=== PATIENT | female | born 1935 | race Caucasian/White ===

== ENCOUNTER 2018-06-14 10:21 | Inpatient (IN) ==
--- NOTE | 2018-06-14 10:43 | Pre-Sedation Evaluation ---
Pre-sedation evaluation - Pre-sedation checklist Date of procedure: 06/14/18 Procedure: [facility] [place] Recent Vitals: VS stable per patient H&P (including ROS) documented in medical record: Yes Previous reaction to sedatives/anesthetics: No Dietary Status: NPO after Midnight Airway Assessment: Patient can open mouth completely, TMJ function normal ASA Classification *see protocol: CLASS II-Mild systemic disease Cardiac Registry (Cardio Only) - Functional Capacity Functional Capacity: >=4 METS with symptoms - Clincal Frailty Scale Clinical Frailty Scale: Managing Well
[2018-06-14] MEDS ORDERED: 0.9 % Sodium Chloride 1,000 ML IVC SCH (10:45)
--- NOTE | 2018-06-14 10:49 | History & Physical Report ---
Date of Encounter: 06/14/18 Time of Encounter: 11:00 24 Hour HP Update - Instructions Instructions: If the History and Physical is less than 30 days old and was completed prior to A.M. admission and or procedure and has NOT been updated on calendar day of procedure please complete this update prior to performing procedure. - Update Patient reports changes in Medical Condition: No Changes in examination, assessment, or condition: No Changes in Medication: No Preop tests/diagnostics Reviewed: Yes Surgery Remains Indicated: Yes Consent for Planned Operative Procedure(s) Verified: Yes
[2018-06-14] MEDS ORDERED: ISOVUE-370 200 ML INFUS..BTL IV ONE ×2 (10:50→13:51)
[2018-06-14] MEDS ORDERED: Heparin 1,000 UNITS/500 mL 500 ML ONE ×2 (10:50→17:58)
[2018-06-14] MEDS ORDERED: Nitroglycerin 1,000 MCG/10 ML VIAL IV ONE (10:50)
[2018-06-14] MEDS ORDERED: *HR* Heparin 10,000 UNIT/10 ML VIAL ONE (10:50)
[2018-06-14] MEDS ORDERED: *HR* Midazolam HCl 2 MG/2 ML VIAL ONE ×2 (13:06→13:48)
[2018-06-14] MEDS ORDERED: *HR* FentaNYL (PF) 100 MCG/2 ML VIAL ONE ×2 (13:06→17:50)
[2018-06-14] MEDS ORDERED: Verapamil 5 MG/2 ML VIAL ONE (13:27)
[2018-06-14] MEDS ORDERED: Tirofiban 12.5 MG/250ML 12.5 MG/250 ML BAG ONE (13:45)
--- NOTE | 2018-06-14 13:57 | Cardiology History & Physical ---
Date of Encounter: 06/14/18 Time of Encounter: 13:25 Assessment and Plan (1) Abnormal nuclear stress test Current Visit: Yes Status: Acute A/R/B of [facility] discussed with her including 1% chance of WI//CVA/CABG/GEOVANY/ bleeding. Eliquis held. Will attempt transradial approach if able. Will avoid triple therapy if possible given advanced age and being on anticoagulation for AF. Pt aware and agreeable with proceeding. The assessment and plan as outlined above was discussed with the patient and/or family members who expressed understanding and agreement. All questions were answered. History of Present Illness Chief complaint: abnormal stress test HPI: Ms. Desir is a 83 year old female with abnormal stress test for preoperative evaluation with low functional capacity < 4 METS and newly diagnosed AF on Eliquis.. Her stress test showed abnormalities in multiple coronary distributions. She denies any active symptoms of chest/jaw/arm discomfort but has had palpitations leading to Holter finding afib. Past Med Surg Social Fam HX - Past Medical History Medical history: COPD, fibromyalgia, GERD, hypertension Additional medical history: KIDNEY DISEASE. PRURIGO NODULARIS Psychiatric history: depression - Past Surgical History Surgical History: cholecystectomy, hysterectomy, knee replacement - Social History Smoking Status: Never smoker Smokeless Tobacco Status: No Alcohol use: none Drug use: none Medications and Allergies Acetaminophen [Tylenol] 500 mg PO Q6HR PRN #20 tablet 02/19/18 [Rx] Amlodipine Besylate [Amlodipine Besylate] 10 mg PO DAILY 02/19/18 [History] Diltiazem [Cardizem] 120 mg PO DAILY 02/19/18 [History] Apixaban [Eliquis] 5 mg PO BID 06/14/18 [History] Aspirin [Lo-Dose Aspirin EC] 81 mg PO DAILY 06/14/18 [History] Benazepril HCl [Lotensin] 40 mg PO DAILY 06/14/18 [History] Calcium/Magnesium [Calcium with Magnesium Tab] 2 tab PO DAILY 06/14/18 [History] Cholecalciferol (D-3) [Vitamin D] 1,000 unit PO DAILY 06/14/18 [History] Diltiazem HCl [Diltiazem ER] 120 mg PO DAILY 06/14/18 [History] FLUoxetine HCl [Sarafem] 20 mg PO DAILY 06/14/18 [History] Gabapentin [Neurontin] 300 mg PO BID 06/14/18 [History] Glimepiride [Amaryl] 4 mg PO DAILY 06/14/18 [History] Tramadol HCl [Ultram] 50 mg PO QID PRN 06/14/18 [History] hydroCHLOROthiazide [Hydrochlorothiazide] 25 mg PO DAILY 06/14/18 [History] 3 Allergy/AdvReac Type Severity Reaction Status Date / Time ciprofloxacin [From Cipro] Allergy Severe Swelling Verified 06/09/18 11:22 of Lip/Tongue/Throat Sulfa (Sulfonamide Allergy Intermediate Palpitation Verified 06/09/18 11:22 Antibiotics) s Oxycodone Allergy Hives Verified 02/19/18 14:10 sulfamethoxazole Allergy Nausea Verified 06/14/18 10:45 [From Bactrim] trimethoprim [From Bactrim] Allergy Nausea Verified 06/14/18 10:45 All Systems Review: The remainder of the systems were reviewed and are negative Physical Examination Vital Signs, Last 4 Hours Temp Pulse Resp BP Pulse Ox 06/14/18 11:01 98.3 F 74 18 125/69 97 Results 06/14/18 16:28
--- NOTE | 2018-06-14 15:54 | Invasive Diagnostic Lab Proc ---
Name: Elsa Desir Date of Study: 06/14/2018 Date: 1935 Ht: 64.0in Medical Record#: [id number] Age: 83 Wt: 205.00lb Gender: Female BSA: 1.98 Order #: [id number] BMI: 35.19 Physicians Procedure Physician: Marcel Zelaya MD, FACC Referring MD: Hanh Adams, FIORELLA Referring MD: Staff Name Position Time In Modesta Kuhn RT (R) Scrub 01:03 PM Sabrina Rojas RN Monitor 01:03 PM Javed Cui RN Solid Plasterer 01:03 PM Indications Indication Abnormal Test - Stress Procedures Performed Procedure L HRT ARTERY/VENTRICLE ANGIO PRQ CARDIAC ANGIOPLAST 1 ART Pre-Procedure Checklist Informed consent is complete signed and on chart. H&P is on chart. ID band is on and ID verified with patient. Patient NPO for procedure The procedure was described for the patient and questions were answered. Blood Pressure: 125/69 ECG is on chart. Rhythm: NSR Plan of Care Patient will tolerate the procedure without complications. Adequate level of comfort will be maintained. Hemodynamics will remain stable Patient will recover from procedure without complications. Respiratory function will be maintained. Cardiac rhythm will remain stable. Patient temperature will be maintained. Patient and/or family have verbalized understanding of the procedure. Patient Education Intravenous Access Time IV Size Location DC'd Fluid/Drip Rate Units RN 11:10 AM Started with 20g 1 1/4" Lt Antecubital 0.9NaCl 50 ml/hr Eddie Oakes RN 01:18 PM Started with 22g 1 " Rt Antecubital 0.9NaCl Yamila Flores RN Allergies Sulfa (Sulfonamide Antibiotics) Oxycodone ciprofloxacin Vital Signs Time BP (mmHg) HR (bpm) O2 Sat. RR (bpm) LOC 11:11 AM 125 / 69 76 97 % 16 5 = Fully awake and oriented or at pre-proc level 01:10 PM / % 5 = Fully awake and oriented or at pre-proc level 01:10 PM / % 4 = Oriented but drowsy 01:26 PM / % 4 = Oriented but drowsy 01:41 PM / % 4 = Oriented but drowsy 01:10 PM 141 / 81 133 100 % 16 01:20 PM 130 / 63 77 100 % 17 01:25 PM 119 / 65 65 100 % 11 01:30 PM 110 / 62 61 98 % 13 01:35 PM 105 / 66 66 97 % 13 01:40 PM 108 / 61 60 100 % 12 01:45 PM 112 / 66 74 100 % 13 01:50 PM 113 / 59 62 100 % 10 01:55 PM 114 / 64 76 97 % 15 02:00 PM 119 / 69 71 98 % 13 02:05 PM 121 / 57 46 % 15 02:15 PM 120 / 68 74 100 % 18 4 = Oriented but drowsy 02:30 PM 108 / 62 73 97 % 16 5 = Fully awake and oriented or at pre-proc level 02:45 PM 124 / 69 62 96 % 16 5 = Fully awake and oriented or at pre-proc level 03:00 PM 125 / 70 69 95 % 16 5 = Fully awake and oriented or at pre-proc level 03:15 PM 112 / 58 70 94 % 18 5 = Fully awake and oriented or at pre-proc level Procedural Medications Time Medication Dose Units Method Given By 01:10 PM Oxygen 2 L/min nasal cannula Javed Cui RN 01:19 PM Versed 2 mg Intravenous Javed Cui RN 01:19 PM Fentanyl 50 mcg Intravenous Javed Cui RN 01:31 PM Lidocaine 2% 0.5 ml Subcutaneous Marcel Zelaya MD, FACC 01:34 PM Lidocaine 2% 19 ml Subcutaneous Marcel Zelaya MD, FACC 01:45 PM Heparin 4000 units Intravenous Javed Cui RN 01:47 PM Aggrastat Bolus: 46 ml/hr Intravenous Javed Cui RN 01:48 PM Aggrastat 12.5mg/250ml 16.5 ml/hr Intravenous Javed Cui RN 01:49 PM Versed 1 mg Intravenous Javed Cui RN 01:53 PM Nitroglycerin 50 mcg Intracoronary Marcel Zelaya MD ASA Classification: CLASS II- Mild systemic disease (i.e. well-controlled diabetes, hypertension, asthma, cigarette smoking) Hao Score Preprocedure Postprocedure Activity 2- Moves 4 extremities sustained head lift Activity 2- Moves 4 extremities sustained head lift Circulation 2- SBP +/= 20 points of pre-anesthetic level Circulation 2- SBP +/= 20 points of pre-anesthetic level Consciousness 2- Awake and alert oriented x 3 Consciousness 2- Awake and alert oriented x 3 O2 Saturation 2- Able to maintain O2 satruation of 92% on room air O2 Saturation 2- Able to maintain O2 satruation of 92% on room air Respiratory 2- Able to deep breathe and cough well Respiratory 2- Able to deep breathe and cough well Total Score 10 Total Score 10 Contrast Agent: Isovue Diagnostic Contrast: 101 ml Total Contrast: 101 ml Fluoro Dose: 3368 mGy Activated Clotting Time Time Seconds to Clot 03:05 PM 171 Procedure Log Time Note Enter By 12:08 PM Case Delayed, physician meeting 12-1 [facility] 01:03 PM Javed Cui RN Position: Solid Plasterer Time in: 13: [facility] 01:03 PM Pt arrived to irrigation laborer 2 at 13:03 [email or web address] 01:03 PM [email or web address] Modesta Kuhn (R) Position: Scrub Time in: 13: [facility] 01:03 PM Meet and greet completed [facility] 01:03 PM Sign in performed according to hospital policy. [email or web address] 01:03 PM Procedure start 13:03 [email or web address] 01[facility] PM Patient charges- Angio tray pack, Navilyst 3mm J, Pulse Oximetry and ACIST tubing and transducer [email or web address] 01:03 PM Sabrina Rojas RN Position: Monitor Time in: 13: [facility] 01:07 PM CathStat 01:07 PM Vitals capture started with the following parameters, Patient=Adult, Interval=5 min, Initial Tgnqrfor=070 mmHg, Deflation Rate=5 mmHg, Cuff placed on Right Arm 01:08 PM Vitals capture stopped. 01:08 PM Hair removed from procedure site in procedure lab using clippers. Right wrist and right groin prepped with Chloraprep by Modesta uKhn (R), then patient was draped. Skin intact. [facility] 01:09 PM Vitals capture started with the following parameters, Patient=Adult, Interval=5 min, Initial Irzmhaxz=711 mmHg, Deflation Rate=5 mmHg, Cuff placed on Right Arm 01:10 PM DC=015 bpm, UGEK=030/81 mmhg, NbW6=290.0 %, Resp=16 B/min 01:10 PM Time: 13:10 Oxygen on at 2 L/min per nasal cannula by Javed Cui RN [facility] : PM Time: 13:10 Patient comfortable and pain free: Yes kmavis 01:10 PM Time: 13:10LOC: 5 = Fully awake and oriented or at pre-proc level kmavis 01:11 PM Recorded ECG: HR=66 Condition=Condition 1 01:11 PM ASA Class CLASS II- Mild systemic disease (i.e. well-controlled diabetes, hypertension, asthma, cigarette smoking) kmavis :19 PM Vitals capture started with the following parameters, Patient=Adult, Interval=5 min, Initial Kvnzlccu=536 mmHg, Deflation Rate=5 mmHg, Cuff placed on Right Arm 01: PM Time: 13: Versed 2 mg Intravenous Given by Javed Cui RN kmavis : PM Time: 13: Fentanyl 50 mcg Intravenous Given by Javed Cui RN kmavis 01:20 PM HR=77 bpm, QQQX=173/63 mmhg, LlT2=451.0 %, Resp=17 B/min, Comment=nsr 01:25 PM HR=65 bpm, KFHT=781/65 mmhg, DkO8=791.0 %, Resp=11 B/min, Comment=nsr :25 PM Pressure channel 1 zeroed. : PM Time: 13:10 Patient comfortable and pain free: Yes kmavis :26 PM Time: 13:10LOC: 4 = Oriented but drowsy kmavis :29 PM Time out performed according to hospital policy kmavis 01:30 PM HR=61 bpm, AYPU=120/62 mmhg, SpO2=98.0 %, Resp=13 B/min, Comment=nsr 01:30 PM ultrasound utilized for sheath placement to right wrist kmavis :31 PM Time: 13:31 0.5 ml Lidocaine 2% to right radial Subcutaneous Given by Marcel Zelaya MD, [facility] kmavis :33 PM Unsuccessful access attempt # 1 into the right Radial artery. Manual pressure applied to achieve hemostasis.. kmavis :33 PM ultrasound utilized for sheath placement to right groin kmavis 01:34 PM Time: 13:34 19 ml Lidocaine 2% to right groin Subcutaneous Given by Marcel Zelaya MD, [facility] kmavis 01:35 PM HR=66 bpm, SLDS=657/66 mmhg, SpO2=97.0 %, Resp=13 B/min, Comment=nsr 01:37 PM Access obtained by percutaneous puncture. 5/6 Fr 10cm Terumo Glidesheath sheath placed in right Femoral artery. [id number] kmavis 01:38 PM 5Fr FL 4 catheter inserted over the wire DN kmavis 01:38 PM LCA angiography performed in multiple views. kmavis 01:39 PM Recorded Pressure: Ao, HR=62, Condition=Condition 1 (Aorta) Ao 86/47/66 01:39 PM LCA angiography performed in multiple views. kmavis 01:39 PM 0.035 145cm Navilyst 3mmJ wire [id number] kmavis 01:40 PM HR=60 bpm, GLKV=286/61 mmhg, GnD5=472.0 %, Resp=12 B/min, Comment=nsr 01:41 PM Time: 13:26 Patient comfortable and pain free: Yes kmavis 01:41 PM Time: 13:26LOC: 4 = Oriented but drowsy kmavis 01:41 PM Catheter removed kmavis 01:41 PM 5Fr FR 4 catheter inserted over the wire DN kmavis 01:41 PM RCA angiography performed in multiple views. kmavis 01:42 PM Recorded Pressure: Ao, HR=65, Condition=Condition 1 (Aorta) Ao 72/41/58 01:43 PM Catheter removed kmavis 01:43 PM Lesion found in Proximal LAD. Pre Stenosis: 50 Pre TEA Flow: kmavis 01:43 PM Lesion found in 1st Marginal. Pre Stenosis: 99 Pre TEA Flow: kmavis 01:43 PM 5Fr Pigtail catheter inserted over the wire DN kmavis 01:44 PM Recorded Pressure: LV, HR=75, Condition=Condition 1 (Left Ventricle) LV 107/-16/0 01:44 PM Recorded Pressure: LV, Ao, HR=74, Condition=Condition 1 (Left Ventricle) LV 103/-17/-5, (Aorta) Ao 98/46/70 01:45 PM HR=74 bpm, HPEO=355/66 mmhg, UaB1=602.0 %, Resp=13 B/min, Comment=nsr 01:45 PM Time: 13:45 Heparin 4000 units Intravenous Given by Javed Cui RN kmavis 01:46 PM Catheter selectively placed in left ventricle kmavis 01:46 PM Catheter removed kmavis 01:47 PM 6Fr CLS 3.5 Runway guide catheter was used to cannulate the PCI vessel successfully. reused? No kmavis 01:47 PM .014 [place] 190cm guide wire across target lesion- successful. reused? No kmavis 01:47 PM Inflation device was opened. kmavis 01:48 PM Time: 13:47 Aggrastat Bolus: 46 ml/hr Intravenous Given by Javed Cui RN Lobato pump kmavis 01:48 PM Time: 13:48 Aggrastat 12.5mg/250ml 16.5 ml/hr Intravenous Given by Javed Cui RN [place]ato pump kmavis 01:49 PM Time: 13:49 Versed 1 mg Intravenous Given by Javed Cui RN kmavis 01:50 PM 3.0 mm x 12 mm Emerge Monorail balloon across target lesion- successful. reused? No kmavis 01:50 PM HR=62 bpm, ORNV=434/59 mmhg, MkS3=099.0 %, Resp=10 B/min, Comment=nsr 01:50 PM Balloon inflated @ 7 alia for 20 seconds kmavis 01:52 PM Balloon inflated @ 6 alia for 4 seconds kmavis 01:53 PM Balloon inflated @ 12 alia for 27 seconds kmavis 01:53 PM Time: 13:53 Nitroglycerin 50 mcg Intracoronary Given by Marcel Zelaya MD kmavis 01:54 PM Proximal Left Anterior Descending Coronary Artery with 50% stenosis. If graft is supplying this territory, 0 % stenosis. kmavis 01:54 PM Circumflex, Obtuse Marginal, Left Posterior Descending, and Left Posterolateral Coronary Arteries with 99 % stenosis. If graft is supplying this area, 0 % stenosis kmavis 01:54 PM Coronary Dominance: right kmavis 01:55 PM HR=76 bpm, CHZM=941/64 mmhg, SpO2=97.0 %, Resp=15 B/min, Comment=nsr 01:55 PM Guide catheter removed intact. kmavis 01:56 PM Guide wire removed intact. kmavis 01:56 PM Balloon catheter removed intact. kmavis 01:56 PM Time: 13:41 Patient comfortable and pain free: Yes kmavis 01:56 PM Time: 13:41LOC: 4 = Oriented but drowsy kmavis 01:56 PM Did you address TEA flow and Dominance? Yes kmavis 01:58 PM Sign out completed: Radiation Dose 529 mGy, 3368.01 cGy/cm2 Fluoro Time: 4.7 Isovue 370 - 200ml contrast 101 ml given by Marcel Zelaya MD, [facility]. Complications: NoneCardiac Rehab Consult needed: NoConfirmed administered medications: Yes kmavis 01:58 PM Isovue 370 - 200ml,1 Bottle(s) used. kmavis 01:58 PM Sheath left in place to be pulled on floor/holding areaV+Pad kmavis 01:59 PM Estimated Blood Loss: minimal kmavis 01:59 PM Post ECG NSR kmavis 01:59 PM Post Blood Pressure 114/64 kmavis 01:59 PM 13:59 Post Pulses Bilateral DP & PT 1+ kmavis 01:59 PM Information taught Cardiac Cath kmavis 01:59 PM Education needs Procedure, Plan of Care, Disease Process, and Responsibilities of Patient in Care kmavis 01:59 PM Learning barriers :None kmavis 01:59 PM Education Methods Verbal kmavis 01:59 PM Education evaluation Able to repeat information kmavis 02:00 PM Site status No bleeding/hematoma - Rt Groin as reported by Modesta Kuhn RT (R) at 14:00 kmavis 02:00 PM HR=71 bpm, AASS=461/69 mmhg, SpO2=98.0 %, Resp=13 B/min, Comment=nsr 02:00 PM Opsite applied kmavis 02:00 PM Plavix, Effient or Brilinta given No kmavis 02:00 PM Procedure completed at 14:00 06/14/2018 kmavis 02:02 PM Report given to Eddie BEAVER Pt taken to Holding room Room #2. 14:00 kmavis 02:02 PM Family placed in consult room. kmavis 02:02 PM Complications: None kmavis 02:02 PM Patient out of room: 14:02 kmavis 02:05 PM HR=46 bpm, NZMX=436/57 mmhg, Resp=15 B/min, Comment=nsr 02:34 PM Family at bedside. kwitte 03:20 PM Right femoral sheath pulled per Eddie Oakes RN. Manual pressure being held with Vpad at present. kwitte 03:22 PM Patient assisted to bedpan to void, voids large amount of clear yellow without difficulty. kwitte 03:37 PM Report given to Christel BEAVER Pt taken to 2NE Room #30. 15:37 kwitte 03:47 PM Patient out of room: 15:47 [email or web address] Complications Complication None None Hemodynamics Pressures Site Systolic/A Wave Diastolic/V Wave Mean AO 86 47 66 AO 72 41 58 LV 107 -16 0 LV 103 -17 -5 AO 98 46 70 Post Procedure Information Blood Pressure: 114/64 mmHg Rhythm: NSR Post procedural instructions were given Site Checks Time Location Status Staff Sheath In? Note 02:00 PM Rt Groin No bleeding/hematoma Modesta Kuhn RT (R) 02:30 PM Rt Groin No bleeding/ No Hematoma Eugene Paula RN 02:45 PM Rt Groin No bleeding/ No Hematoma Eugene Paula RN 03:00 PM Rt Groin No bleeding/ No Hematoma Eugene Paula RN 03:15 PM Rt Groin No bleeding/ No Hematoma Eugene Paula RN Pulses Time Site Pre-Procedure Post-Procedure Note 06/14/2018 11:10:00 AM Bilateral DP & PT 2+ 06/14/2018 11:10:00 AM Bilateral radial 2+ 1:59:00 PM Bilateral DP & PT 1+ 06/14/2018 2:15:00 PM Bilateral DP & PT 1+ 06/14/2018 2:30:00 PM Bilateral DP & PT 1+ Updated by Helen Cassidy RN on 06/14/2018 3:47:28 PM electronically signed on 06/14/2018 3:48:12 PM with status of Final
[2018-06-14] MEDS ORDERED: Isovue-370 500 ML INFUS..BTL IV ONE ×2 (16:18→17:28)
[2018-06-14] MEDS ORDERED: 0.9 % Sodium Chloride 2,000 ML ONE (16:23)
[2018-06-14] MEDS ORDERED: traMADol 50 MG TABLET PO PRN (16:33)
[2018-06-14 16:45] LABS: Hematocrit 28.6 % (35.3-44.9)
[2018-06-14 16:46] LABS: Hemoglobin 9.9 g/dL (11.5-15.4)
--- NOTE | 2018-06-14 17:42 | Anesthesia Evaluation PreOp ---
Date of Encounter: 06/14/18 Time of Encounter: 17:45 - Past History Planned Operation: evacuation of hematoma Cardiac History: Other (CAD, had angiography today with PTCA but no stent placement. Was anticoagulated per protocol and developed hematoma after removal of sheath. Patient became hypotensive to the 70's but has improved with fluids and RBCs. Pressures now in 90's) Pulmonary History: COPD IT ENGINEER History: Other (fibromyalgia) Other Medical History: Denies Any Significant HX Anesthesia History: No Prior Anesthetic Complications, Past Anesthesia Alcohol Use: none Drug use: none Medications and Allergies Acetaminophen [Tylenol] 500 mg PO Q6HR PRN #20 tablet 02/19/18 [Rx] Amlodipine Besylate [Amlodipine Besylate] 10 mg PO DAILY 02/19/18 [History] Diltiazem [Cardizem] 120 mg PO DAILY 02/19/18 [History] Apixaban [Eliquis] 5 mg PO BID 06/14/18 [History] Aspirin [Lo-Dose Aspirin EC] 81 mg PO DAILY 06/14/18 [History] Benazepril HCl [Lotensin] 40 mg PO DAILY 06/14/18 [History] Calcium/Magnesium [Calcium with Magnesium Tab] 2 tab PO DAILY 06/14/18 [History] Cholecalciferol (D-3) [Vitamin D] 1,000 unit PO DAILY 06/14/18 [History] Diltiazem HCl [Diltiazem ER] 120 mg PO DAILY 06/14/18 [History] FLUoxetine HCl [Sarafem] 20 mg PO DAILY 06/14/18 [History] Gabapentin [Neurontin] 300 mg PO BID 06/14/18 [History] Glimepiride [Amaryl] 4 mg PO DAILY 06/14/18 [History] Tramadol HCl [Ultram] 50 mg PO QID PRN 06/14/18 [History] hydroCHLOROthiazide [Hydrochlorothiazide] 25 mg PO DAILY 06/14/18 [History] 3 Allergy/AdvReac Type Severity Reaction Status Date / Time ciprofloxacin [From Cipro] Allergy Severe Swelling Verified 06/09/18 11:22 of Lip/Tongue/Throat Sulfa (Sulfonamide Allergy Intermediate Palpitation Verified 06/09/18 11:22 Antibiotics) s Oxycodone Allergy Hives Verified 02/19/18 14:10 sulfamethoxazole Allergy Nausea Verified 06/14/18 10:45 [From Bactrim] trimethoprim [From Bactrim] Allergy Nausea Verified 06/14/18 10:45 - Meds/Allergy Pre-op Review Medications Reviewed: Yes Allergies Reviewed: Yes Beta Blockers on Current Med List: No Anesthesia Results - Labs 06/14/18 16:28 - Imaging EKG: report reviewed (supraventricular rhythm) Anesthesia Exam Selected Entries 06/14/18 15:59 Temperature 97.7 F Pulse Rate 60 Respiratory Rate 18 Blood Pressure 82/54 O2 Sat by Pulse Oximetry 98 Weight: 92 kg NPO (# of Hours): over 8 hours - HEENT Pupil (Motor): Pupils equal Mallampati: II Teeth: Edentulous Oral Opening: Greater than 3 - Cardiac Rhythm: Regular Murmur: None - Pulmonary Breath Sounds: bilateral Clear Respiratory Effort: Symmetrical
[2018-06-14] MEDS ORDERED: Ondansetron 4 MG/2 ML VIAL ONE (17:56)
[2018-06-14] MEDS ORDERED: Dexamethasone 4 MG/ML VIAL ONE (17:56)
[2018-06-14] MEDS ORDERED: *HR* Succinylcholine 200 MG/10 ML VIAL IVP ONE (17:56)
[2018-06-14] MEDS ORDERED: Lidocaine -MPF 2% 2 ML VIAL ONE (17:56)
[2018-06-14] MEDS ORDERED: *HR* Etomidate 40 MG/20 ML VIAL IVP ONE (17:56)
[2018-06-14] MEDS ORDERED: *HR* PHENYLEPHRINE 1,000 MCG/10 ML SYRINGE IVP ONE (17:57)
[2018-06-14] MEDS ORDERED: *HR* Propofol 200 MG/20 ML VIAL IVP ONE (18:57)
[2018-06-14] MEDS ORDERED: Ondansetron 4 MG/2 ML VIAL IVP ONE (19:11)
[2018-06-14] MEDS ORDERED: *HR* FentaNYL (PF) 100 MCG/2 ML VIAL IVP PRN (19:11)
[2018-06-14] MEDS ORDERED: ceFAZolin 2,000 MG in Water for inj. (sterile) 20 ML 20 ML IVP ONE (19:15)
[2018-06-14] MEDS ORDERED: EPHEDrine 50 MG/ML VIAL ONE (19:27)
--- NOTE | 2018-06-14 20:17 | Vascular/Endovasc Consult Note ---
Date of Encounter: 06/14/18 Time of Encounter: 17:20 Assessment and Plan (1) Retroperitoneal hematoma Current Visit: Yes Status: Acute Patient has active bleeding from the right groin access following cardiac catheterization and sheath removal. Patient will need emergency surgery. The operating room has been notified. I briefly discussed the situation with the patient's daughter and requested that we proceed as soon as possible to the operating room for exploration of the right groin and control of the right groin bleeding. All questions were answered. (2) Abnormal nuclear stress test Current Visit: Yes Status: Acute Patient has coronary artery disease and an obtuse marginal lesion was identified and treated earlier today. - History of Present Illness Consult date: 06/14/18 Requesting physician: Marcel Zelaya Consult reason: bleeding post cardiac catheterization Chief complaint: Abdominal and groin pain History of present illness: Ms. Desir is a 83 year old female Who had undergone a cardiac catheterization with balloon PTCA earlier today of the obtuse marginal artery. The procedure was performed via a right femoral approach. The patient had an uncomplicated course both during and after the procedure. The right groin femoral sheath was removed and standard protocol compression was applied to the puncture site. Afterwards wherever the patient developed pain initially on the left groin region and lower abdomen and then became cold and clammy. The blood pressure was diminished and a stat CT scan was obtained. This demonstrated bleeding from the right groin site. No pathology was identified in the left groin area. Because of this vascular surgery was consulted to see the patient. Past Med Surg Social Fam HX - Past Medical History Medical history: COPD, fibromyalgia, GERD, hypertension Additional medical history: KIDNEY DISEASE. PRURIGO NODULARIS Psychiatric history: depression - Past Surgical History Surgical History: cholecystectomy, hysterectomy, knee replacement - Social History Smoking Status: Never smoker Smokeless Tobacco Status: No Alcohol use: none Drug use: none Medications and Allergies Acetaminophen [Tylenol] 500 mg PO Q6HR PRN #20 tablet 02/19/18 [Rx] Amlodipine Besylate [Amlodipine Besylate] 10 mg PO DAILY 02/19/18 [History] Diltiazem [Cardizem] 120 mg PO DAILY 02/19/18 [History] Apixaban [Eliquis] 5 mg PO BID 06/14/18 [History] Aspirin [Lo-Dose Aspirin EC] 81 mg PO DAILY 06/14/18 [History] Benazepril HCl [Lotensin] 40 mg PO DAILY 06/14/18 [History] Calcium/Magnesium [Calcium with Magnesium Tab] 2 tab PO DAILY 06/14/18 [History] Cholecalciferol (D-3) [Vitamin D] 1,000 unit PO DAILY 06/14/18 [History] Diltiazem HCl [Diltiazem ER] 120 mg PO DAILY 06/14/18 [History] FLUoxetine HCl [Sarafem] 20 mg PO DAILY 06/14/18 [History] Gabapentin [Neurontin] 300 mg PO BID 06/14/18 [History] Glimepiride [Amaryl] 4 mg PO DAILY 06/14/18 [History] Tramadol HCl [Ultram] 50 mg PO QID PRN 06/14/18 [History] hydroCHLOROthiazide [Hydrochlorothiazide] 25 mg PO DAILY 06/14/18 [History] 3 Allergy/AdvReac Type Severity Reaction Status Date / Time ciprofloxacin [From Cipro] Allergy Severe Swelling Verified 06/09/18 11:22 of Lip/Tongue/Throat Sulfa (Sulfonamide Allergy Intermediate Palpitation Verified 06/09/18 11:22 Antibiotics) s Oxycodone Allergy Hives Verified 02/19/18 14:10 sulfamethoxazole Allergy Nausea Verified 06/14/18 10:45 [From Bactrim] trimethoprim [From Bactrim] Allergy Nausea Verified 06/14/18 10:45 All Systems Review: The remainder of the systems were reviewed and are negative Exam General: Present: Other (Patient is seen in the trauma room in the emergency department. She is in obvious distress. Direct manual pressure is being applied to the right groin area by one of the staff RNs from the catheter lab with the nurse kneeling in bed over the groin puncture site.) HEENT: Present: Normocephaly Neck: Absent: JVD Cardiac: Present: Reg Rate and Rhythm Lungs: Present: Decreased breath sounds Neuro: Present: Alert and responsive Abdomen: Present: Soft. Absent: Masses Vascular: Present: Capillary refill delayed, Color/Temperature (Extremities are pale and white.), Other (The right groin puncture site was evaluated and there was no obvious mass or hematoma at this region.) Consult Discharge Plan - Plan Referrals: Hanh Adams [Primary Care Provider] - Katia Pop, FIORELLA [Family Provider] -
--- NOTE | 2018-06-14 20:18 | Event Note ---
Date of Encounter: 06/14/18 Time of Encounter: 16:00 - Cardiology Event Note Patient underwent LHC/PTCA of OM early afternoon for abnormal stress test / preop / AFib. Ultrasound of right radial (trace pulse) shows small artery for LHC. Ultrasound guided R MATERIALS TECH Access without complication. Sheath angiogram after LHC shows sheath is inferior to the inferior deflection of inferior hypogastric artery (below inguinal ligament). Manual sheath pull in holding area. Patient had no complaints and transferred to [facility]. In process of transfer , she complained of severe Left sided groin pain extending to left abdomen towards the umbilicus and was diaphoretic, peters and hypotensive. She received fluid bolus and STAT CT and CTA of A/P completed showing large L sided RP hematoma and active R femoral artery extravasation. Patient remained hemodynamically stable with NS bolus without pressors and pressure held at R inguinal area. Vascular surgery Dr. Young consulted for possible surgical management and 1 U PRBC infused for acute blood loss anemia.
--- NOTE | 2018-06-14 20:19 | Operative Note ---
Date of procedure: 06/14/18 Pre-op diagnosis: right groin bleeding Post-op diagnosis: same Procedure: exploration of right groin/repair right external iliac bleeding Complications: none Anesthesia: GETA Surgeon: Leonardo Young Was there an geriatric nurse assistant present: No Estimated blood loss (cc): 350 Specimen: 0 Condition: stable Disposition: PACU Procedure in Detail: History Elsa Desir is an 83-year-old white female who was seen in emergent consultation and trauma room in the emergency department. The patient had an abnormal nuclear medicine scan which led to a cardiac catheterization. This was performed earlier today via a right groin puncture. Patient had obtuse marginal balloon angioplasty. Following the right groin sheath removal of patient developed signs and symptoms of hemodynamic distress. A CT angiogram of the abdomen and pelvis was obtained which showed active bleeding from the right groin puncture area. The patient was taken to the operating room as an emergency. Procedure After informed consent was obtained from the patient's daughter the patient was taken as an emergency to the operating room. General endotracheal anesthesia was established. The lower abdomen and groin and upper thighs were sterilely prepped and draped. A timeout protocol was observed. A vertical incision was then made in the right groin. Dissection was carried down to reveal the common femoral artery and inguinal ligament. It should be noted the patient had marked obesity at this location making the dissection extremely difficult and exposure tedious. Once the femoral artery was dissected and controlled it was found that there were no findings to suggest a puncture at this level. Evaluation posteriorly revealed no trauma. Therefore the dissection was carried more proximally. The inguinal ligament was then dissected up and off of the artery and retracted superiorly. The distal external iliac artery was then exposed. Once this area was exposed active ongoing arterial bleeding was identified. This was the source of the retroperitoneal bleeding. Because of the depth and location of the artery it was impossible to apply a proximal clamp. Therefore manual pressure with surgical instruments were necessary and then 4 Prolene sutures were used to control the puncture site. After control was obtained the area was irrigated and hemostasis achieved from the surrounding soft tissue. The area was palpated as well as evaluated with an on table Doppler. Appropriate Doppler signals and palpable pulses were found. Apperson Marcaine was then infiltrated into the wound. The wound was then closed in multiple layers using absorbable suture. The skin edges were approximated using 4-0 Vicryl. It should be noted that the patient had very thin skin and had or he developed ecchymosis from the prolonged pressure in an attempt to control the bleeding preoperatively. No drains were necessary and none were placed at this time. An estimated blood loss was about 350 mL's. The patient was able to be extubated on the operating room table. She was then transported from the operating room to the recovery room in stable condition.
[2018-06-14] MEDS ORDERED: Gabapentin 300 MG CAPSULE PO SCH (21:00)
--- NOTE | 2018-06-14 21:13 | Anesthesia Evaluation Post Op ---
Date of Encounter: 06/14/18 Time of Encounter: 21:13 - Discharge PostOp Status: Transfer Patient to floor (Patient's vital signs have been reviewed. Patient is stable postoperatively and has adequately recovered from anesthesia. Patient is determined to have stable airway patency and respiratory function including respiratory rate and oxygen saturation. Patient has a stable heart rate, blood pressure and adequate hydration. Patients mental status is acceptable. Patients temperature is appropriate. Pain and nausea are adequately controlled.)
[2018-06-14] MEDS ORDERED: Naloxone 0.4 MG/ML INJ IVP PRN (21:28)
[2018-06-14] MEDS ORDERED: *HR* HYDROcodone/Acet 5/325 mg TABLET PO PRN (21:28)
[2018-06-14] MEDS ORDERED: Ondansetron 4 MG/2 ML VIAL IVP PRN (21:28)
[2018-06-14] MEDS ORDERED: *HR* OxyCODONE Immed Rel 5 MG TABLET PO PRN (21:28)
[2018-06-15 04:34] LABS: Hematocrit 32.1 % (35.3-44.9); Hemoglobin 11.3 g/dL (11.5-15.4); Immature Granulocytes % 0.5 % (0-4); Lymphocytes # 0.4 K/mcL (0.6-4.6); Lymphocytes % 6.8 %; Mean Corpuscular HGB Conc 35.2 g/dL (31.6-35.5); Mean Corpuscular Hemoglobin 30.3 pg (28.0-33.3); Mean Corpuscular Volume 86.1 fL (83.0-100.0); Mean Platelet Volume 9.4 fL (9.4-12.4); Monocytes # 0.2 K/mcL (0.0-1.3); Monocytes % 3.1 %; Platelet Count 147 K/mcL (140-400); Red Blood Count 3.73 M/mcL (3.82-4.97); Red Cell Distribution Width 13.9 % (11.5-14.5); Segmented Neutrophils % 89.6 %
[2018-06-15 04:35] LABS: Neutrophils # 5.6 K/mcL (1.6-8.9)
[2018-06-15 04:57] LABS: BUN/Creatinine Ratio 27 (6-26); Blood Urea Nitrogen 25 mg/dL (8-23); Calcium 8.3 mg/dL (8.6-10.3); Carbon Dioxide 21 mEq/L (23-29); Chloride 108 mEq/L (98-107); Glucose 238 mg/dL (70-105); Osmolality,Calculated 294 (280-300); Potassium 3.9 mEq/L (3.5-5.1); Sodium 136 mEq/L (136-145); eGFR For Non-African Americans 58 (> 60)
--- NOTE | 2018-06-15 08:54 | Vascular/Endovas Progress Note ---
Date of Encounter: 06/15/18 Time of Encounter: 08:50 - Assessment and plan (1) Retroperitoneal hematoma Current Visit: Yes Status: Acute Patient is stable from both a hemodynamic standpoint and a hemoglobin standpoint on the morning of postoperative day 1 following emergency surgery. We will liberalize patient's activity and remove Harp. Patient may be discharged from a vascular surgery perspective to either home or ECF pending the evaluation of physical therapy. Patient follow-up in vascular surgery clinic in 2 weeks. (2) Abnormal nuclear stress test Current Visit: Yes Status: Acute Patient has coronary artery disease and an obtuse marginal lesion was identified and treated earlier today. - Subjective Interval history: Patient is postop day #1 following emergency groin exploration and repair of bleeding external iliac artery. The patient had uneventful night. She is feeling fine. She denies any significant pain or discomfort associated with the surgical area. The patient is sitting up in bed eating breakfast without any abdominal discomfort. Vital Signs, Last 4 Hours Temp Pulse Resp BP Pulse Ox 06/15/18 06:43 98.9 F 87 18 123/54 97 - Physical Examination General: Present: Conversant, No Apparent Distress HEENT: Present: Atraumatic Neck: Absent: JVD Neuro: Present: Alert and responsive, No focal deficits noted Vascular: Present: Normal capillary refill, Pulse, normal (Patient now has a palpable posterior tibial pulse), Color/Temperature (Right foot is warm and pink ), Surgical incisions (Dressing on the right groin is clean and dry and intact.) Abdomen: Present: Soft, Non-tender Skin: Present: No rashes noted on visualized skin Results 06/15/18 04:18 06/15/18 04:18 Lab Results, Last 24 hours 06/14/18 06/15/18 06/15/18 16:28 04:18 04:18 WBC 6.2 D Hgb 9.9 L D 11.3 L Hct 28.6 L 32.1 L Plt Count 151 147 Sodium 136 Potassium 3.9 Chloride 108 H Carbon Dioxide 21 L BUN 25 H Creatinine 0.93 Glucose 238 H Calcium 8.3 L Consult Discharge Plan - Plan Additional Instructions: Remove right groin dressing in 2 days following surgery. Keep right groin surgical site dry for 5 days following surgery. No lifting greater than 10 pounds. Referrals: Hanh Adams [Primary Care Provider] - Katia Pop CNP [Family Provider] - Leonardo Young MD [Partnered Physician] - 06/28/18 10:30 am
[2018-06-15] MEDS ORDERED: amLODIPine 5 MG TABLET PO SCH (09:00)
[2018-06-15] MEDS ORDERED: *HR* Glimepiride 4 MG TABLET PO SCH (09:00)
[2018-06-15] MEDS ORDERED: Lisinopril 20 MG TABLET PO SCH (09:00)
[2018-06-15] MEDS ORDERED: Aspirin Enteric Coated 81 MG Tablet PO SCH (09:00)
[2018-06-15] MEDS ORDERED: Cholecalciferol (D-3) 1,000 UNIT TABLET PO SCH (09:00)
[2018-06-15] MEDS ORDERED: Diltiazem CD (24hr) 120 MG CAPSULE PO SCH ×2 (09:00→12:00)
[2018-06-15] MEDS ORDERED: MAGNESIUM PO SCH (09:00)
[2018-06-15] MEDS ORDERED: hydroCHLOROthiazide 25 MG TABLET PO SCH (09:00)
[2018-06-15] MEDS ORDERED: FLUoxetine 20 MG CAPSULE PO SCH (09:00)
[2018-06-15] MEDS ORDERED: CALCIUM PO SCH (09:00)
[2018-06-15] MEDS: Acetaminophen 325 MG TABLET PO PRN ×2 (10:18→19:51)
[2018-06-15] MEDS ORDERED: traMADol 50 MG TABLET PO PRN (11:58)
--- NOTE | 2018-06-15 12:06 | Cardiology Progress Note ---
Date of Encounter: 06/15/18 Time of Encounter: 10:30 Assessment and Plan (1) CAD (coronary artery disease) Current Visit: Yes Status: Acute Patient presented for elective C for abnormal stress test. She received PTCA to OM via right femoral access with good results. 40-50% stenosis mLAD remaining. No complication initially after procedure. Upon trasfer to floor yesterday she developed hypotension and became cold and clammy. CT scan demonstrated RP bleed. She was taken to surgery by vascular surgery and underwent groin exploration with repair of external iliac artery. She did receive one unit PRBC. Hgb is stable. She reports she is feeling well this morning. We will continue asa for PTCA. Restart home medications. Medications held yesterday for hypotension. Start statin and bb. I will switch CCB to a beta -ingrid. Restart zestril if b/p allows. Healthy heart diet reviewed. Qualifiers: Coronary Disease-Associated Artery/Lesion type: [place] artery [place] vs. transplanted heart: [place] heart Associated angina: without angina Qualified Code(s): I25.10 - Atherosclerotic heart disease of [place] coronary artery without angina pectoris (2) Abnormal nuclear stress test Current Visit: Yes Status: Acute (3) Retroperitoneal hematoma Current Visit: Yes Status: Acute S/p surgical repair of iliac artery. Reports she is feeling well. Hgb stable. Appreciate vascular surgery recs. (4) Physical deconditioning Current Visit: Yes Status: Acute Daughter states that patient developed physical deconditioning prior to procedure and she was considering possible rehab stay. Noted to have increased weakness and is at increased risk of fall. PT/OT/ social service worker consulted. Patient would like to go to [facility]. (5) Atrial fibrillation Current Visit: Yes Status: Acute H/o PAF. I will change CCB to BB for CAD. Currently NSR. Discussed with jaime Kevin to re-start eliquis tomorrow. Qualifiers: Atrial fibrillation type: paroxysmal Qualified Code(s): I48.0 - Paroxysmal atrial fibrillation Discussion w patient/family: The assessment and plan as outlined above was discussed with the patient and/or family members who expressed understanding and agreement. All questions were answered. Thank you for involving us in the care of your patient. Please call with any questions. Subjective Principal diagnosis: CAD, abnormal stress, RP bleed Interval history: Ms. Desir states she is feeling well. Denies chest pain or SOB. mild tenderness in right groin. Objective Vital Signs, Last 4 Hours Temp Pulse Resp BP Pulse Ox 06/15/18 11:54 98.9 F 95 18 139/70 98 General: Conversant, No Apparent Distress HEENT: Atraumatic, Normocephaly, Mucus Membranes Moist Neck: No JVD, Normal carotid pulses Cardiac: Reg Rate and Rhythm, Normal S1 and S2, No Murmur, Other (NSR) Lungs: Normal Breath Sounds, No Wheeze, Rales, Rhonchi Neuro: Alert and responsive, No focal deficits noted Abdomen: Soft, Non-Tender, Other (Tenderness over right femoral access site. Dressing D/I. Ecchymosis noted. Area soft. ) Skin: No rashes noted on visualized skin Musculoskeletal: No Chest Wall Tenderness Extremities: No Clubbing, No Cyanosis, No Edema, Normal Pulses Results 06/15/18 04:18 06/15/18 04:18 Lab Results 06/14/18 06/15/18 06/15/18 16:28 04:18 04:18 WBC 6.2 D Hgb 9.9 L D 11.3 L Hct 28.6 L 32.1 L Plt Count 151 147 Sodium 136 Potassium 3.9 Chloride 108 H Carbon Dioxide 21 L BUN 25 H Creatinine 0.93 Glucose 238 H Calcium 8.3 L - Imaging and Cardiology Stress Test: report reviewed Echo: report reviewed Cardiac cath: report reviewed - EKG Interpretation EKG results cardiology: personally reviewed Consult Discharge Plan - Plan Additional Instructions: Remove right groin dressing in 2 days following surgery. Keep right groin surgical site dry for 5 days following surgery. No lifting greater than 10 pounds. Referrals: Hanh Adams [Primary Care Provider] - Isabelle Dickey CNP [Advanced Practice Nurse] - 06/21/18 1:30 pm Katia Pop CNP [Family Provider] - Leonardo Young MD [Partnered Physician] - 06/28/18 10:30 am
[2018-06-15] MEDS: Aspirin 81 MG TAB.CHEW PO SCH (12:35)
[2018-06-15] MEDS: *HR* Glimepiride 4 MG TABLET PO SCH (12:35)
[2018-06-15] MEDS: hydroCHLOROthiazide 25 MG TABLET PO SCH (12:36)
[2018-06-15] MEDS: Gabapentin 300 MG CAPSULE PO SCH ×2 (12:36→19:57)
[2018-06-15] MEDS: FLUoxetine 20 MG CAPSULE PO SCH (12:37)
[2018-06-15] MEDS: Famotidine 20 MG TABLET PO SCH ×2 (13:51→19:55)
[2018-06-16] MEDS: Gabapentin 300 MG CAPSULE PO SCH ×2 (08:21→20:44)
[2018-06-16] MEDS: Aspirin 81 MG TAB.CHEW PO SCH (08:22)
[2018-06-16] MEDS: Famotidine 20 MG TABLET PO SCH ×2 (08:22→20:44)
[2018-06-16] MEDS: FLUoxetine 20 MG CAPSULE PO SCH (08:22)
[2018-06-16] MEDS: *HR* Glimepiride 4 MG TABLET PO SCH (08:22)
[2018-06-16] MEDS: hydroCHLOROthiazide 25 MG TABLET PO SCH (08:22)
[2018-06-16 08:23] LABS: Basophils % 0.4 %; Eosinophils # 0.1 K/mcL (0.0-0.6); Eosinophils % 1.4 %; Hematocrit 26.4 % (35.3-44.9); Immature Granulocytes % 0.4 % (0-4); Lymphocytes # 1.1 K/mcL (0.6-4.6); Lymphocytes % 20.3 %; Mean Corpuscular HGB Conc 34.1 g/dL (31.6-35.5); Mean Corpuscular Hemoglobin 29.8 pg (28.0-33.3); Mean Corpuscular Volume 87.4 fL (83.0-100.0); Mean Platelet Volume 9.5 fL (9.4-12.4); Monocytes # 0.5 K/mcL (0.0-1.3); Monocytes % 8.9 %; Neutrophils # 3.6 K/mcL (1.6-8.9); Platelet Count 133 K/mcL (140-400); Red Blood Count 3.02 M/mcL (3.82-4.97); Red Cell Distribution Width 14.3 % (11.5-14.5); Segmented Neutrophils % 68.6 %
[2018-06-16] MEDS ORDERED: hydroCHLOROthiazide 25 MG TABLET PO SCH (08:25)
[2018-06-16 08:45] LABS: BUN/Creatinine Ratio 23 (6-26); Blood Urea Nitrogen 21 mg/dL (8-23); Calcium 8.9 mg/dL (8.6-10.3); Carbon Dioxide 27 mEq/L (23-29); Chloride 107 mEq/L (98-107); Glucose 86 mg/dL (70-105); Osmolality,Calculated 286 (280-300); Potassium 4.3 mEq/L (3.5-5.1); Sodium 137 mEq/L (136-145); eGFR For Non-African Americans 59 (> 60)
[2018-06-16] MEDS ORDERED: Apixaban 5 MG TABLET PO SCH (09:00)
--- NOTE | 2018-06-16 13:49 | Cardiology Progress Note ---
Date of Encounter: 06/16/18 Time of Encounter: 13:41 Assessment and Plan (1) CAD (coronary artery disease) Current Visit: Yes Status: Acute Patient presented for elective C for abnormal stress test. She received PTCA to OM via right femoral access with good results. 40-50% stenosis mLAD remaining. No complication initially after procedure. Upon trasfer to step-down unit she developed RP bleed. S/p groin exploration with repair of external iliac artery with vascular surgery 05/14/18. She did receive one unit PRBC. Hgb is stable. She reports she is feeling well this morning. Discussed with Dr. Zelaya , We will continue asa only for PTCA. Medications held initially for hypotension. BB started with home dose HCTZ. I will decrease HCTZ for low b/p. Cardiac rehab ordered. ECF placement for deconditioning pending. Qualifiers: Coronary Disease-Associated Artery/Lesion type: [place] artery [place] vs. transplanted heart: [place] heart Associated angina: without angina Qualified Code(s): I25.10 - Atherosclerotic heart disease of [place] coronary artery without angina pectoris (2) Abnormal nuclear stress test Current Visit: Yes Status: Acute (3) Retroperitoneal hematoma Current Visit: Yes Status: Acute S/p surgical repair of iliac artery. Reports she is feeling well. Hgb decreased. WIll monitor serial HGB. No change in right groin. SOft with ecchymosis. Appreciate vascular surgery recs. (4) Physical deconditioning Current Visit: Yes Status: Acute Daughter states that patient developed physical deconditioning prior to procedure and she was considering possible rehab stay. Noted to have increased weakness and is at increased risk of fall. PT/OT/ social insurance specialist consulted. Patient [facility]. (5) Atrial fibrillation Current Visit: Yes Status: Acute H/o PAF. I will change CCB to BB for CAD. Currently NSR. Discussed with jaime Kevin to re-start eliquis today. Hgb dropped. I will hold off on restarting eliquis until Hgb stable. Qualifiers: Atrial fibrillation type: paroxysmal Qualified Code(s): I48.0 - Paroxysmal atrial fibrillation Discussion w patient/family: The assessment and plan as outlined above was discussed with the patient and/or family members who expressed understanding and agreement. All questions were answered. Thank you for involving us in the care of your patient. Please call with any questions. Subjective Principal diagnosis: CAD, abnormal stress, RP bleed Interval history: Ms. Desir states she is feeling well. Denies chest pain or SOB. mild tenderness in right groin. She is awaiting ECF placement. Noted that she had difficulty transferring from bed to chair. Objective Vital Signs, Last 4 Hours Temp Pulse Resp BP Pulse Ox 06/16/18 11:02 98.4 F 72 16 91/53 96 General: Conversant, No Apparent Distress HEENT: Atraumatic, Normocephaly, Mucus Membranes Moist Neck: No JVD, Normal carotid pulses Cardiac: Reg Rate and Rhythm, Normal S1 and S2, No Murmur Lungs: Normal Breath Sounds, No Wheeze, Rales, Rhonchi Neuro: Alert and responsive, No focal deficits noted Abdomen: Soft, Non-Tender Skin: No rashes noted on visualized skin Musculoskeletal: No Chest Wall Tenderness Extremities: No Clubbing, No Cyanosis, No Edema, Normal Pulses Results 06/16/18 08:11 06/16/18 08:11 Lab Results 06/16/18 06/16/18 08:11 08:11 WBC 5.2 Hgb 9.0 L D Hct 26.4 L Plt Count 133 L Sodium 137 Potassium 4.3 Chloride 107 Carbon Dioxide 27 BUN 21 Creatinine 0.92 Glucose 86 Calcium 8.9 - Imaging and Cardiology Echo: report reviewed - EKG Interpretation EKG results cardiology: personally reviewed - VTE Reasons for not Prescribing Prophylaxis: Medical contraindication Consult Discharge Plan - Plan Additional Instructions: Remove right groin dressing in 2 days following surgery. Keep right groin surgical site dry for 5 days following surgery. No lifting greater than 10 pounds. Referrals: Hanh Adams [Primary Care Provider] - Isabelle Dickey CNP [Advanced Practice Nurse] - 06/21/18 1:30 pm Katia Pop CNP [Family Provider] - Leonardo Young MD [Partnered Physician] - 06/28/18 10:30 am
[2018-06-16 15:19] LABS: Hematocrit 26.7 % (35.3-44.9); Hemoglobin 9.4 g/dL (11.5-15.4)
--- NOTE | 2018-06-16 16:01 | Vascular/Endovas Progress Note ---
Date of Encounter: 06/16/18 Time of Encounter: 15:57 - Assessment and plan (1) Retroperitoneal hematoma Current Visit: Yes Status: Acute Patient is stable following right groin surgery. She is postoperative day #2. She is pending transfer to [facility] for further rehabilitation. Will order dressing change for today. Dressing will remain in place for 2 days then the wound may be left open to air. (2) Abnormal nuclear stress test Current Visit: Yes Status: Acute Patient has coronary artery disease and an obtuse marginal lesion. - Subjective Interval history: Patient is postop day #2 following emergency groin exploration and repair of bleeding external iliac artery. The patient has no new complaints. She is receiving therapy evaluation. She is pending transfer to [facility] in near future. - Physical Examination General: Present: Conversant, No Apparent Distress - VTE Reasons for not Prescribing Prophylaxis: Medical contraindication Results 06/16/18 15:02 06/16/18 08:11 Lab Results, Last 24 hours 06/16/18 06/16/18 06/16/18 08:11 08:11 15:02 WBC 5.2 Hgb 9.0 L D 9.4 L Hct 26.4 L 26.7 L Plt Count 133 L Sodium 137 Potassium 4.3 Chloride 107 Carbon Dioxide 27 BUN 21 Creatinine 0.92 Glucose 86 Calcium 8.9 Consult Discharge Plan - Plan Additional Instructions: Remove right groin dressing in 2 days following surgery. Keep right groin surgical site dry for 5 days following surgery. No lifting greater than 10 pounds. Referrals: Hanh Adams [Primary Care Provider] - Isabelle Dickey CNP [Advanced Practice Nurse] - 06/21/18 1:30 pm Katia Pop CNP [Family Provider] - Leonardo Young MD [Partnered Physician] - 06/28/18 10:30 am
--- NOTE | 2018-06-16 17:34 | Electrocardiograph Report ---
[address] [place] [address] Test Date: 2018-06-14 Pat Name: Elsa Desir Department: 111 Room: 09 Gender: F Circulation Director: : 1935 Requested By: Marcel Zelaya Order Number: [id number] Reading MD: Khushi Hill Measurements Intervals Peerless Rate: 59 P: 73 MO: 151 QRS: -28 QRSD: 85 T: 46 QT: 414 QTc: 414 Interpretive Statements SINUS BRADYCARDIA BORDERLINE LEFT AXIS DEVIATION Electronically Signed On 06-16-2018 17:32:32 EDT by Khushi Hill
[2018-06-17] MEDS: Acetaminophen 325 MG TABLET PO PRN (04:30)
[2018-06-17 05:36] LABS: Basophils % 0.5 %; Eosinophils # 0.1 K/mcL (0.0-0.6); Eosinophils % 1.6 %; Hematocrit 23.9 % (35.3-44.9); Hemoglobin 8.2 g/dL (11.5-15.4); Immature Granulocytes % 0.7 % (0-4); Lymphocytes # 0.9 K/mcL (0.6-4.6); Lymphocytes % 21.7 %; Mean Corpuscular HGB Conc 34.3 g/dL (31.6-35.5); Mean Corpuscular Volume 87.5 fL (83.0-100.0); Mean Platelet Volume 9.5 fL (9.4-12.4); Monocytes # 0.5 K/mcL (0.0-1.3); Monocytes % 11.3 %; Neutrophils # 2.8 K/mcL (1.6-8.9); Platelet Count 144 K/mcL (140-400); Red Blood Count 2.73 M/mcL (3.82-4.97); Red Cell Distribution Width 14.1 % (11.5-14.5); Segmented Neutrophils % 64.2 %
[2018-06-17 05:52] LABS: BUN/Creatinine Ratio 25 (6-26); Blood Urea Nitrogen 19 mg/dL (8-23); Calcium 8.5 mg/dL (8.6-10.3); Carbon Dioxide 25 mEq/L (23-29); Chloride 104 mEq/L (98-107); Glucose 132 mg/dL (70-105); Osmolality,Calculated 284 (280-300); Potassium 3.5 mEq/L (3.5-5.1); Sodium 135 mEq/L (136-145); eGFR For Non-African Americans > 60 (> 60)
--- NOTE | 2018-06-17 08:41 | Cardiology Progress Note ---
Date of Encounter: 06/17/18 Time of Encounter: 08:30 Assessment and Plan (1) CAD (coronary artery disease) Current Visit: Yes Status: Acute Per Cardiology: Patient presented for elective [facility] for abnormal stress test. She received PTCA to OM via right femoral access with good results. 40-50% stenosis mLAD remaining. No complication initially after procedure. Upon trnsfer to step-down unit she developed RP bleed. S/p groin exploration with repair of external iliac artery with vascular surgery 06/14/18. She did receive one unit PRBC. On aspirin, statin, beta ingrid. ECF placement for deconditioning pending. Qualifiers: Coronary Disease-Associated Artery/Lesion type: [place] artery [place] vs. transplanted heart: [place] heart Associated angina: without angina Qualified Code(s): I25.10 - Atherosclerotic heart disease of [place] coronary artery without angina pectoris (2) Atrial fibrillation Current Visit: Yes Status: Acute Per Cardiology: H/o PAF. Currently sinus rhythm. On beta ingrid. Discussed with jaime Kevin to re-start eliquis. However, hemoglobin remains low and dropped to 8.1 today. We will discuss review with Dr. Landrum- - long-term anticoagulation and transfer DC'd ECF. Anticipate we will continue to monitor another day. Qualifiers: Atrial fibrillation type: paroxysmal Qualified Code(s): I48.0 - Paroxysmal atrial fibrillation (3) Retroperitoneal hematoma Current Visit: Yes Status: Acute Per Cardiology: S/p surgical repair of iliac artery. Reports she is feeling well. Hgb decreased. Will monitor serial HGB. No change in right groin. SOft with ecchymosis. Appreciate vascular surgery recs. Discussion w patient/family: The assessment and plan as outlined above was discussed with the patient and/or family members who expressed understanding and agreement. All questions were answered. Thank you for involving us in the care of your patient. Please call with any questions. Subjective Principal diagnosis: CAD, abnormal stress, RP bleed Interval history: Patient denies any concerns or complaints overnight. Denies any chest pain, short of breath, palpitations. Denies any active bleeding or blood loss. Objective Vital Signs, Last 4 Hours Temp Pulse Resp BP Pulse Ox 06/17/18 07:28 97.8 F 56 16 108/55 96 06/17/18 04:40 97.8 F 75 17 105/59 97 General: Conversant, No Apparent Distress HEENT: Atraumatic, Normocephaly, Mucus Membranes Moist Neck: No JVD, Normal carotid pulses Cardiac: Reg Rate and Rhythm, Normal S1 and S2, No Murmur Lungs: Normal Breath Sounds, No Wheeze, Rales, Rhonchi Neuro: Alert and responsive, No focal deficits noted Abdomen: Soft, Non-Tender Skin: No rashes noted on visualized skin, Other (Right groin site with mild to moderate ecchymosis, incision site well approximated, no erythema, no drainage) Musculoskeletal: No Chest Wall Tenderness Extremities: No Clubbing, No Cyanosis, No Edema, Normal Pulses Results 06/17/18 05:14 06/17/18 05:14 Lab Results Selected Entries 06/16/18 16:35 Temperature 100.6 F H Laboratory Tests 06/17/18 05:14 Hgb 8.2 L Hct 23.9 L Active Medications Acetaminophen (Tylenol) 650 mg PO Q6HR PRN PRN Reason: Mild Pain/Fever Stop: 12/14/18 21:29 Last Admin: 06/17/18 04:30 Dose: 650 mg Hydrocodone Bitart/Acetaminophen ([place] 5-325 Mg) 1 tab PO Q6HR PRN PRN Reason: Moderate Pain Stop: 12/14/18 21:29 Last Admin: 06/15/18 12:37 Dose: 1 tab Aspirin (Aspirin) 81 mg PO DAILY [facility] Stop: 12/15/18 12:01 Last Admin: 06/16/18 08:22 Dose: 81 mg Atorvastatin Calcium (Lipitor) 80 mg PO HS [facility] Stop: 12/15/18 21:01 Last Admin: 06/16/18 20:44 Dose: 80 mg Famotidine (Pepcid) 10 mg PO BID [facility] PRN Reason: Protocol Stop: 12/15/18 12:46 Last Admin: 06/16/18 20:44 Dose: 10 mg Fluoxetine HCl (Prozac) 20 mg PO DAILY [facility] Stop: 12/15/18 12:01 Last Admin: 06/16/18 08:22 Dose: 20 mg Gabapentin (Neurontin) 300 mg PO BID [facility] Stop: 12/15/18 12:01 Last Admin: 06/16/18 20:44 Dose: 300 mg Glimepiride (Amaryl) 4 mg PO DAILY [facility] Stop: 12/15/18 12:01 Last Admin: 06/16/18 08:22 Dose: 4 mg Metoprolol Tartrate (Lopressor) 25 mg PO BID [facility] Stop: 12/15/18 21:01 Last Admin: 06/16/18 20:44 Dose: 25 mg Naloxone HCl (Narcan) 0.4 mg IVP Q2MIN PRN PRN Reason: SEE COMMENTS Stop: 12/14/18 21:29 Ondansetron HCl (Zofran) 4 mg IVP Q6HR PRN PRN Reason: Nausea And Vomiting Stop: 12/14/18 21:29 Tramadol HCl (Ultram) 50 mg PO QID PRN PRN Reason: Breakthrough Pain Stop: 12/15/18 11:59 - EKG Interpretation EKG results cardiology: other (Telemetry reviewed with average heart rate the past 12 hours 72, sinus rhythm in the 60s to 70s) - VTE Reasons for not Prescribing Prophylaxis: Medical contraindication Consult Discharge Plan - Plan Additional Instructions: Remove right groin dressing in 2 days following surgery. Keep right groin surgical site dry for 5 days following surgery. No lifting greater than 10 pounds. Referrals: Hanh Adams [Primary Care Provider] - Isabelle Dickey CNP [Advanced Practice Nurse] - 06/21/18 1:30 pm Katia Pop CNP [Family Provider] - Leonardo Yougn MD [Partnered Physician] - 06/28/18 10:30 am
[2018-06-17] MEDS: Aspirin 81 MG TAB.CHEW PO SCH (08:45)
[2018-06-17] MEDS: Gabapentin 300 MG CAPSULE PO SCH ×2 (08:46→22:28)
[2018-06-17] MEDS: Famotidine 20 MG TABLET PO SCH ×2 (08:46→22:27)
[2018-06-17] MEDS: FLUoxetine 20 MG CAPSULE PO SCH (08:46)
[2018-06-17] MEDS: *HR* Glimepiride 4 MG TABLET PO SCH (08:46)
[2018-06-18 05:01] LABS: Hematocrit 24.3 % (35.3-44.9); Hemoglobin 8.4 g/dL (11.5-15.4)
[2018-06-18] MEDS: *HR* Glimepiride 4 MG TABLET PO SCH (09:09)
[2018-06-18] MEDS: Aspirin 81 MG TAB.CHEW PO SCH (09:09)
[2018-06-18] MEDS: Famotidine 20 MG TABLET PO SCH ×2 (09:09→21:59)
[2018-06-18] MEDS: Gabapentin 300 MG CAPSULE PO SCH ×2 (09:09→21:59)
[2018-06-18] MEDS: FLUoxetine 20 MG CAPSULE PO SCH (09:09)
[2018-06-18] MEDS ORDERED: Bisacodyl 10 MG RECTAL SUPPOSITORY RC STA (09:50)
--- NOTE | 2018-06-18 12:03 | Cardiology Progress Note ---
Date of Encounter: 06/18/18 Time of Encounter: 12:00 Assessment and Plan (1) CAD (coronary artery disease) Current Visit: Yes Status: Acute Per Cardiology: Patient presented for elective [facility] for abnormal stress test. She received PTCA to OM via right femoral access with good results. 40-50% stenosis mLAD remaining. No complication initially after procedure. Upon transfer to step- down unit she developed RP bleed. S/p groin exploration with repair of external iliac artery with vascular surgery 06/14/18. She did receive 2 units PRBC. On aspirin, statin, beta ingrid. ECF placement for deconditioning pending. Chest pain-free. Qualifiers: Coronary Disease-Associated Artery/Lesion type: [place] artery [place] vs. transplanted heart: [place] heart Associated angina: without angina Qualified Code(s): I25.10 - Atherosclerotic heart disease of [place] coronary artery without angina pectoris (2) Atrial fibrillation Current Visit: Yes Status: Acute Per Cardiology: H/o PAF. Currently sinus rhythm. On beta ingrid. Discussed with jaime Kevin to re-start eliquis. Hemoglobin appears stable as today. On aspirin. We will initiate home dose of Eliquis 5mg PO BID and monitor for any further bleeding. Will evaluate potential discharge to rehabilitation facility tomorrow if hemoglobin stable. Qualifiers: Atrial fibrillation type: paroxysmal Qualified Code(s): I48.0 - Paroxysmal atrial fibrillation (3) Retroperitoneal hematoma Current Visit: Yes Status: Acute Per Cardiology: S/p surgical repair of iliac artery. Reports she is feeling well. Hgb decreased. Will monitor serial HGB. No change in right groin. Soft with ecchymosis. Appreciate vascular surgery recs. Discussion w patient/family: The assessment and plan as outlined above was discussed with the patient and/or family members who expressed understanding and agreement. All questions were answered. Thank you for involving us in the care of your patient. Please call with any questions. Subjective Principal diagnosis: CAD, abnormal stress, RP bleed Interval history: Patient denies any concerns or complaints overnight. Denies any chest pain, short of breath, palpitations. Denies any active bleeding or blood loss. Reports constipation, no bowel movements recently-- requesting suppository. Objective Vital Signs, Last 4 Hours Pulse 06/18/18 09:15 82 General: Conversant, No Apparent Distress HEENT: Atraumatic, Normocephaly, Mucus Membranes Moist Neck: No JVD, Normal carotid pulses Cardiac: Reg Rate and Rhythm, Normal S1 and S2, No Murmur Lungs: Normal Breath Sounds, No Wheeze, Rales, Rhonchi Neuro: Alert and responsive, No focal deficits noted Abdomen: Soft, Non-Tender Skin: No rashes noted on visualized skin, Other (Right groin site with moderate ecchymosis, appears to be healing, no active bleeding or drainage) Musculoskeletal: No Chest Wall Tenderness Extremities: No Clubbing, No Cyanosis, No Edema, Normal Pulses Results 06/18/18 04:27 06/17/18 05:14 Lab Results 06/18/18 04:27 Hgb 8.4 L Hct 24.3 L Active Medications Acetaminophen (Tylenol) 650 mg PO Q6HR PRN PRN Reason: Mild Pain/Fever Stop: 12/14/18 21:29 Last Admin: 06/17/18 04:30 Dose: 650 mg Hydrocodone Bitart/Acetaminophen ([place] 5-325 Mg) 1 tab PO Q6HR PRN PRN Reason: Moderate Pain Stop: 12/14/18 21:29 Last Admin: 06/15/18 12:37 Dose: 1 tab Apixaban (Eliquis) 5 mg PO BID [facility] Stop: 12/18/18 12:01 Aspirin (Aspirin) 81 mg PO DAILY [facility] Stop: 12/15/18 12:01 Last Admin: 06/18/18 09:09 Dose: 81 mg Atorvastatin Calcium (Lipitor) 80 mg PO HS [facility] Stop: 12/15/18 21:01 Last Admin: 06/17/18 22:28 Dose: 80 mg Famotidine (Pepcid) 10 mg PO BID [facility] PRN Reason: Protocol Stop: 12/15/18 12:46 Last Admin: 06/18/18 09:09 Dose: 10 mg Fluoxetine HCl (Prozac) 20 mg PO DAILY [facility] Stop: 12/15/18 12:01 Last Admin: 06/18/18 09:09 Dose: 20 mg Gabapentin (Neurontin) 300 mg PO BID [facility] Stop: 12/15/18 12:01 Last Admin: 06/18/18 09:09 Dose: 300 mg Glimepiride (Amaryl) 4 mg PO DAILY [facility] Stop: 12/15/18 12:01 Last Admin: 06/18/18 09:09 Dose: 4 mg Metoprolol Tartrate (Lopressor) 25 mg PO BID [facility] Stop: 12/15/18 21:01 Last Admin: 06/18/18 09:09 Dose: 25 mg Naloxone HCl (Narcan) 0.4 mg IVP Q2MIN PRN PRN Reason: SEE COMMENTS Stop: 12/14/18 21:29 Ondansetron HCl (Zofran) 4 mg IVP Q6HR PRN PRN Reason: Nausea And Vomiting Stop: 12/14/18 21:29 Tramadol HCl (Ultram) 50 mg PO QID PRN PRN Reason: Breakthrough Pain Stop: 12/15/18 11:59 - VTE Reasons for not Prescribing Prophylaxis: Medical contraindication Consult Discharge Plan - Plan Additional Instructions: Remove right groin dressing in 2 days following surgery. Keep right groin surgical site dry for 5 days following surgery. No lifting greater than 10 pounds. Referrals: Hanh Adams [Primary Care Provider] - Isabelle Dickey CNP [Advanced Practice Nurse] - 06/21/18 1:30 pm Katia Pop CNP [Family Provider] - Leonardo Young MD [Partnered Physician] - 06/28/18 10:30 am
[2018-06-18] MEDS: Apixaban 5 MG TABLET PO SCH ×2 (13:42→21:59)
[2018-06-18] MEDS: Acetaminophen 325 MG TABLET PO PRN (21:58)
[2018-06-19 04:46] LABS: Hematocrit 25.8 % (35.3-44.9); Hemoglobin 8.8 g/dL (11.5-15.4)
[2018-06-19 07:17] VITALS: BP 110/63
[2018-06-19] MEDS: Gabapentin 300 MG CAPSULE PO SCH (08:43)
[2018-06-19] MEDS: *HR* Glimepiride 4 MG TABLET PO SCH (08:43)
[2018-06-19] MEDS: Aspirin 81 MG TAB.CHEW PO SCH (08:43)
[2018-06-19] MEDS: Apixaban 5 MG TABLET PO SCH (08:43)
[2018-06-19] MEDS: FLUoxetine 20 MG CAPSULE PO SCH (08:43)
[2018-06-19] MEDS: Famotidine 20 MG TABLET PO SCH (08:43)
--- NOTE | 2018-06-19 09:58 | Discharge Summary ---
- NOTES TO OUTPATIENT PROVIDER Notes to Outpatient Provider: check hgb in 3 days Orders not resulted at time of discharge: Pending orders 06/20/18 04:00 Hgb/Hct [Hemoglobin and Hematocrit] [HEME] AM 0400 Date of Encounter: 06/19/18 Time of Encounter: 10:00 - Discharge Diagnosis (1) CAD (coronary artery disease) Priority: Primary Status: Acute Comments: S/p LHC: PTCA to OM Qualifiers: Coronary Disease-Associated Artery/Lesion type: [place] artery [place] vs. transplanted heart: [place] heart Associated angina: without angina Qualified Code(s): I25.10 - Atherosclerotic heart disease of [place] coronary artery without angina pectoris (2) Atrial fibrillation Priority: Secondary Status: Chronic Comments: Hx PAF. Qualifiers: Atrial fibrillation type: paroxysmal Qualified Code(s): I48.0 - Paroxysmal atrial fibrillation (3) Retroperitoneal hematoma Priority: Secondary Status: Acute Comments: Developed post procedure RP bleed. - Hospital Course Hospital course: Ms. Desir is a 83 year old female presented for elective [facility] for abnormal stress test. She received PTCA to OM via right femoral access with good results. 40-50% stenosis mLAD remaining. No complication initially after procedure. Upon transfer to step-down unit she developed RP bleed. S/p groin exploration with repair of external iliac artery with vascular surgery 06/14/18. She did receive 2 units PRBC. On aspirin, statin, beta ingrid. ECF placement for deconditioning pending. Chest pain-free. Hemoglobin stabilized. Now on aspirin and Eliquis, ending discharge to rehabilitation facility due to physical deconditioning. Recommend check hemoglobin in 3 days. All questions answered. No medications of beta ingrid and statin provided. - Time Spent with Patient Total time spent providing and/or coordinating discharge services: Less than 30 minutes - Discharge Medications Prescriptions: Atorvastatin [Lipitor] 80 mg PO HS #30 tablet Metoprolol [Lopressor] 25 mg PO BID #60 tablet Home Medications: Acetaminophen [Tylenol] 500 mg PO Q6HR PRN #20 tablet 02/19/18 [Rx] Apixaban [Eliquis] 5 mg PO BID 06/14/18 [History] Aspirin [Lo-Dose Aspirin EC] 81 mg PO DAILY 06/14/18 [History] Calcium/Magnesium [Calcium with Magnesium Tab] 2 tab PO DAILY 06/14/18 [History] Cholecalciferol (D-3) [Vitamin D] 1,000 unit PO DAILY 06/14/18 [History] FLUoxetine HCl [Sarafem] 20 mg PO DAILY 06/14/18 [History] Gabapentin [Neurontin] 300 mg PO BID 06/14/18 [History] Glimepiride [Amaryl] 4 mg PO DAILY 06/14/18 [History] Tramadol HCl [Ultram] 50 mg PO QID PRN 06/14/18 [History] Atorvastatin [Lipitor] 80 mg PO HS #30 tablet 06/19/18 [Rx] Metoprolol [Lopressor] 25 mg PO BID #60 tablet 06/19/18 [Rx] Allergies/Adverse Reactions: 3 Allergy/AdvReac Type Severity Reaction Status Date / Time ciprofloxacin [From Cipro] Allergy Severe Swelling Verified 06/09/18 11:22 of Lip/Tongue/Throat Sulfa (Sulfonamide Allergy Intermediate Palpitation Verified 06/09/18 11:22 Antibiotics) s Oxycodone Allergy Hives Verified 02/19/18 14:10 sulfamethoxazole Allergy Nausea Verified 06/14/18 10:45 [From Bactrim] trimethoprim [From Bactrim] Allergy Nausea Verified 06/14/18 10:45 Date of admission: 06/15/18 12:38 Primary care physician: Hanh Adams Consults: 06/14/18 21:28 Consult to Physical Therapy [CONS] Routine Comment: Evaluate, develop and implement POC Reason for Consult: Status post emergency surgery with preoperative blood loss in elderly patient with poor functional capability. Does patient have active BEDREST order?: No Is patient medically & hemodynamically stable?: Yes 06/15/18 09:51 OT [Consult to Occupational Therapy] [CONS] Routine Comment: Evaluate, develop and implement POC Reason for Consult: posible rehab placement Does patient have active BEDREST order?: No Is patient medically & hemodynamically stable?: Yes Patient assessed for mobility or mobilized this visit?: No 06/15/18 12:02 Consult to [employer] Agent [CONS] Routine Reason for SW Consult: Possible ECF placement 06/16/18 07:51 Consult to Cardiac Rehabilitation-Phase1 [CONS] Routine Comment: Reason for Consult: PCI Call Completed: Yes Discharging clinician: Emmanuel R Ryley Anticipated date of discharge: 06/19/18 Physical Examination Vital Signs, Last 4 Hours Temp Pulse Resp BP Pulse Ox 06/19/18 09:05 65 06/19/18 07:12 98.5 F 60 18 110/63 100 Laboratory Tests 06/19/18 04:26 Hgb 8.8 L Hct 25.8 L General: Conversant, No Apparent Distress HEENT: Atraumatic, Normocephaly, Mucus Membranes Moist Neck: No JVD, Normal carotid pulses Cardiac: Reg Rate and Rhythm, Normal S1 and S2, No Murmur Lungs: Normal Breath Sounds, No Wheeze, Rales, Rhonchi Neuro: Alert and responsive, No focal deficits noted Abdomen: Soft, Non-Tender Skin: No rashes noted on visualized skin, Other (Right coronary incision site well approximated, no drainage, no erythema, no bleeding, right generalized groin moderate ecchymosis appears improving) Musculoskeletal: No Chest Wall Tenderness Extremities: No Clubbing, No Cyanosis, No Edema, Normal Pulses - Patient Status Disposition: Transfer Inpatient Rehab Fac Condition: Fair Overall status at discharge: patient is progressing back to baseline - Discharge Instructions Follow Up With: Hanh Adams [Primary Care Provider] - Isabelle Dickey CNP [Advanced Practice Nurse] - 06/21/18 1:30 pm Katia Pop CNP [Family Provider] - Leonardo Young MD [Partnered Physician] - 06/28/18 10:30 am Additional Instructions: Remove right groin dressing in 2 days following surgery. Keep right groin surgical site dry for 5 days following surgery. No lifting greater than 10 pounds. - Diet and Activity Diet: low fat, low cholesterol, low salt diet - VTE Reasons for not Prescribing Prophylaxis: Medical contraindication
--- NOTE | 2018-06-19 11:21 | Physician Discharge Referral ---
ExtendedCare Referral Info Transfer To: [facility] Provider in Charge after Transfer: PCP - Diagnosis (1) CAD (coronary artery disease) Priority: Primary Status: Acute (2) Atrial fibrillation Priority: Secondary Status: Chronic (3) Retroperitoneal hematoma Priority: Primary Status: Acute Expected Duration of Placement: per PT recs Prognosis: Fair Aware of Diagnosis: Patient Aware of Prognosis: Patient - Transfer Medications Prescriptions: Atorvastatin [Lipitor] 80 mg PO HS #30 tablet Metoprolol [Lopressor] 25 mg PO BID #60 tablet Home Medications: Acetaminophen [Tylenol] 500 mg PO Q6HR PRN #20 tablet 02/19/18 [Rx] Apixaban [Eliquis] 5 mg PO BID 06/14/18 [History] Aspirin [Lo-Dose Aspirin EC] 81 mg PO DAILY 06/14/18 [History] Calcium/Magnesium [Calcium with Magnesium Tab] 2 tab PO DAILY 06/14/18 [History] Cholecalciferol (D-3) [Vitamin D] 1,000 unit PO DAILY 06/14/18 [History] FLUoxetine HCl [Sarafem] 20 mg PO DAILY 06/14/18 [History] Gabapentin [Neurontin] 300 mg PO BID 06/14/18 [History] Glimepiride [Amaryl] 4 mg PO DAILY 06/14/18 [History] Tramadol HCl [Ultram] 50 mg PO QID PRN 06/14/18 [History] Atorvastatin [Lipitor] 80 mg PO HS #30 tablet 06/19/18 [Rx] Metoprolol [Lopressor] 25 mg PO BID #60 tablet 06/19/18 [Rx] Allergies/Adverse Reactions: 3 Allergy/AdvReac Type Severity Reaction Status Date / Time ciprofloxacin [From Cipro] Allergy Severe Swelling Verified 06/09/18 11:22 of Lip/Tongue/Throat Sulfa (Sulfonamide Allergy Intermediate Palpitation Verified 06/09/18 11:22 Antibiotics) s Oxycodone Allergy Hives Verified 02/19/18 14:10 sulfamethoxazole Allergy Nausea Verified 06/14/18 10:45 [From Bactrim] trimethoprim [From Bactrim] Allergy Nausea Verified 06/14/18 10:45 - Respiratory Orders None Smoking Cessation: Smoking cessation has been advised. For more information, call the [place] Tobacco Quit Line at 7-408-OWXE-NOW. - Lab Orders Lab Orders: CBC (check hgb in 3 days) - Ancillary Orders May use pressure relief devices daily prn - Advance Directives Code Status: Full Code - Mobility Orders Chair, Ambulate - Rehabiliation Orders Rehab Potential: Good Rehab Orders: Evaluation for Physical Therapy - Diet Orders No Added Salt (RASHEED), Cardiac CERTIFICATION: I certify that the transfer of the above named patient to an Extended Care Facility is necessary for the continuing treatment of the diagnosis listed. The above information is true and accurate reflection of patient's current condition. Confidential - Redisclosure prohibited without a patient's written consent.
== END 2018-06-19 13:06 | DRG 250 ==
LOC: INVDIALAB 10:21 → 2NENU 16:32 → 2NNU 19:10
PROVIDERS: ADMIT Emergency Medicine; ATTEND Emergency Medicine